=== PATIENT | male | born 1965 | race Caucasian/White ===

== ENCOUNTER → 2022-07-07 | Outpatient (CLI) | payer OTHER ==
--- NOTE | 2022-07-07 10:20 | Diagnostic Imaging Report ---
PROCEDURE: MRI right lower extremity without contrast. TECHNIQUE: Multiplanar, multisequence non contrast-enhanced MRI of the right lower extremity was accomplished. INDICATION: Chronic wound of the right great toe, right great toe ulcer laterally. COMPARISON: None FINDINGS: There is an MRI marker medial to the great toe distal phalanx. No acute fracture is seen in the right great toe. Alignment appears normal. There are mild degenerative changes throughout the toes. No erosions are seen. There is no T1-weighted marrow replacement or significant bone marrow edema. There is focal soft tissue edema at the plantar aspect of the great toe. No drainable fluid collection is seen on this noncontrast exam. The flexor and extensor tendons appear to be intact. There is generalized muscular atrophy, which is likely neurogenic. There are degenerative changes in the midfoot, most severe at the 2nd tarsometatarsal joint. IMPRESSION: 1. Nonspecific soft tissue edema in the right great toe. No findings of osteomyelitis are seen at this time. No drainable fluid collection is seen on this noncontrast study. Dictated by: Dictated on workstation # [id number]
== END ==
LOC: RAD 08:00
PROVIDERS: ATTEND Podiatrist Foot & Ankle Surgery
DX: S91.101A Unspecified open wound of right great toe without damage to nail, initial encounter (principal); L97.519 Non-pressure chronic ulcer of other part of right foot with unspecified severity; X58.XXXA Exposure to other specified factors, initial encounter